=== PATIENT | male | born 1970 | race Caucasian/White ===

== ENCOUNTER → 2024-04-23 15:04 | Outpatient (BNVA) | payer MEDICARE, SELFPAY | PROVIDERS: PCP Nurse Practitioner; Visit Provider Nurse Practitioner | DX: M47.896 Other spondylosis, lumbar region (principal); M25.78 Osteophyte, vertebrae; G57.92 Unspecified mononeuropathy of left lower limb; S30.850A Superficial foreign body of lower back and pelvis, initial encounter; X58.XXXA Exposure to other specified factors, initial encounter | CPT/HCPCS: 72100 ==

== ENCOUNTER 2024-05-14 12:14 | Outpatient (CLI) | payer MEDICARE, MEDICAID, SELFPAY ==
--- NOTE | 2024-05-14 12:15 | MR_ITS ---
WS: [id number] MRI LUMBAR SPINE NONCONTRAST TECHNIQUE: Sagittal T1, T2 and STIR imaging. Axial T1 and T2 imaging. 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 FINDINGS: Mild lumbar curve. No acute compression. Disc bulging worse at L4-5 . L1-L2: Mild facet arthropathy. Spinal canal and foramen are patent. L2-L3: Mild annular bulging. Mild facet arthropathy. Slight narrowing LEFT subarticular recess. Kaleigh en are patent. L3-L4: Shallow central protrusion L3-4 impinges the RIGHT subarticular recess and traversing RIGHT L4 nerve root. Mild facet arthropathy. Mild LEFT foraminal narrowing. L4-L5: Central and LEFT paracentral disc protrusion impinges the traversing LEFT L5 nerve root in the subarticular recess. Mild to moderate central canal stenosis. Mild LEFT proximal foraminal narrowing . Mild facet arthropathy. L5-S1: Shallow central disc protrusion with impingement of the traversing LEFT greater than RIGHT S1 nerve roots. Mild facet arthropathy. Mild bilateral foraminal narrowing. Visualized pelvic bony structures: Normal. Paravertebral soft tissues: Normal. Small central protrusions in the cervical spine crust sorter imaging at C4-C5 C5-C6 and C6-C7 with mild cent ral canal stenosis at C4-5. Slight contact of the cervical cord. This could be further evaluated with cervical spine MRI MR/MR lumbar spine wo con* [id number] IMPRESSION: 1. Prominent Central and LEFT paracentral disc protrusion L4-5 impinges the LE FT subarticular recess and traversing LEFT L5 nerve root. Mild to moderate cent ral canal stenosis. Recommend correlation LEFT L5 nerve root symptoms. 2. Mild LEFT proximal foraminal narrowing L4-5. 3. Shallow central protrusion L5-S1 impinges the traversing LEFT S1 nerve root in the subarticular recess. Recommend correlation LEFT S1 nerve root symptoms. Mild bilateral L5-S1 foraminal narrowing. 4. Shallow central L3-4 with narrowing of the subarticular recess bilaterally.
== END 2024-05-14 12:15 | disposition home or self-care (01) ==
PROVIDERS: PCP Nurse Practitioner; Visit Provider Nurse Practitioner
DX: M51.26 Other intervertebral disc displacement, lumbar region (principal); M54.16 Radiculopathy, lumbar region; M48.061 Spinal stenosis, lumbar region without neurogenic claudication; G89.29 Other chronic pain
CPT/HCPCS: 72148